=== PATIENT | female | born 1995 | race Caucasian/White ===

== ENCOUNTER → 2016-09-10 | Outpatient (REF) | payer OTHER | LOC: M SFHCLERA 20:14 | PROVIDERS: ATTEND Physician Assistant | DX: J02.9 Acute pharyngitis, unspecified (principal) ==

== ENCOUNTER → 2020-04-30 | Outpatient (REF) | payer OTHER | LOC: M WUC 12:08 | PROVIDERS: ATTEND Nurse Practitioner Family | DX: J02.9 Acute pharyngitis, unspecified (principal) ==

== ENCOUNTER → 2023-01-28 | Outpatient (CLI) | payer OTHER | LOC: M PLALAB 16:21 | PROVIDERS: ATTEND Advanced Practice Midwife | DX: Z34.01 Encounter for supervision of normal first pregnancy, first trimester (principal) ==

== ENCOUNTER → 2023-01-28 | Outpatient (REF) | payer OTHER ==
[2023-01-29 12:29] LABS: GC DNA AMPLIFICATION NEGATIVE (NEGATIVE)
== END ==
LOC: M PLALAB 16:06
PROVIDERS: ATTEND Advanced Practice Midwife
DX: Z34.01 Encounter for supervision of normal first pregnancy, first trimester (principal)

== ENCOUNTER → 2023-02-26 | Outpatient (REF) | payer OTHER | LOC: M PLALAB 15:58 | PROVIDERS: ATTEND Obstetrics & Gynecology | DX: R82.90 Unspecified abnormal findings in urine (principal) ==

== ENCOUNTER → 2023-03-17 | Outpatient (CLI) | payer OTHER | LOC: M RAD 12:56 | PROVIDERS: ATTEND Obstetrics & Gynecology | DX: Z34.92 Encounter for supervision of normal pregnancy, unspecified, second trimester (principal) ==

== ENCOUNTER → 2023-03-30 | Outpatient (REF) | payer OTHER | LOC: M SFHCWAGY 13:10 | PROVIDERS: ATTEND Obstetrics & Gynecology | DX: R82.90 Unspecified abnormal findings in urine (principal) ==

== ENCOUNTER → 2023-04-02 | Outpatient (CLI) | payer OTHER | LOC: M WHC 08:15 | PROVIDERS: ATTEND Obstetrics & Gynecology | DX: Z36.2 Encounter for other antenatal screening follow-up (principal) ==

== ENCOUNTER → 2023-06-02 | Outpatient (CLI) | payer BC ==
[2023-06-02 13:35] LABS: HEMOGLOBIN 10.9 g/dl (12.0-15.5); MEAN CORPUSCULAR HEMOGLOBIN 25.4 pg (27.0-33.0); MEAN CORPUSCULAR HGB CONC 32.1 g/dl (32.0-36.5); MEAN CORPUSCULAR VOLUME 79.3 fl (80.0-96.0); PLATELET COUNT, AUTOMATED 298 10^3/uL (150-450); RED BLOOD COUNT 4.29 10^6/uL (4.00-5.40); WHITE BLOOD COUNT 14.8 10^3/uL (4.0-10.0)
[2023-06-02 13:55] LABS: TOTAL PROTEIN,RANDOM URINE 21.6 MG/DL (0.0-14.0)
[2023-06-02 14:02] LABS: CREATININE,RANDOM URINE 179.6 MG/DL
[2023-06-02 14:15] LABS: ALT/SGPT 39 U/L (7.0-40); AST/SGOT 24 U/L (<34); BILIRUBIN,TOTAL 0.2 MG/DL (0.3-1.2); CREATININE FOR GFR 0.54 MG/DL (0.55-1.30); GLOMERULAR FILTRATION RATE > 60.0 (>60); LDH LACTATE DEHYDROGENASE 159 U/L (120-246); URIC ACID 5.2 MG/DL (3.1-7.8)
== END ==
LOC: M PLALAB 11:07
PROVIDERS: ATTEND Advanced Practice Midwife
DX: Z34.03 Encounter for supervision of normal first pregnancy, third trimester (principal)

== ENCOUNTER → 2023-06-23 | Outpatient (CLI) | payer BC | LOC: M WHC 08:39 | PROVIDERS: ATTEND Advanced Practice Midwife | DX: O24.419 Gestational diabetes mellitus in pregnancy, unspecified control (principal); Z3A.35 35 weeks gestation of pregnancy ==

== ENCOUNTER 2023-07-05 17:46 | Inpatient (IN) ==
[~2023-07-05] VITALS: Ht 152.4 cm; Wt 118.7 kg
[2023-07-05] VITALS (12 sets, daily range): BP systolic 107–146; BP diastolic 57–94; O2SAT 98
[2023-07-05] MEDS ORDERED: METF500T13 PO (18:07)
[2023-07-05] MEDS ORDERED: RA M500C PO (18:07)
[2023-07-05] MEDS ORDERED: LEVO50TA5 PO (18:07)
[2023-07-05] MEDS ORDERED: PRENTAB9 PO (18:07)
[2023-07-05] MEDS ORDERED: UNIS25TA3 PO (18:07)
[2023-07-05] MEDS ORDERED: HOME MED LIST COMPLETE! XX SCH (18:10)
[2023-07-05] MEDS ORDERED: PENICILLIN G POTASSIUM 5 MU IV 5 MU in D5W MINI-BAG PLUS 100 ML IV STA (19:43)
[2023-07-05] MEDS ORDERED: LIDOCAINE 1% MDV 20ML VIAL INFIL PRN (19:45)
[2023-07-05] MEDS ORDERED: TRANEXAMIC ACID INJection 1,000 MG in NS 100 ML IV PRN (19:45)
[2023-07-05] MEDS ORDERED: OXYTOCIN DRIP 30 UNITS in IV 1 EA IV PRN (19:45)
[2023-07-05] MEDS ORDERED: METHYLERGONOVINE MALEATE 0.2MG/ML 1ML VIAL IM PRN (19:45)
[2023-07-05] MEDS ORDERED: CARBOPROST TROMETHAMINE 250 MCG/ML AMP IM PRN (19:45)
[2023-07-05 20:44] LABS: HEMATOCRIT 34.5 % (36.0-47.0); HEMOGLOBIN 11.5 g/dl (12.0-15.5); MEAN CORPUSCULAR HEMOGLOBIN 25.2 pg (27.0-33.0); MEAN CORPUSCULAR HGB CONC 33.3 g/dl (32.0-36.5); MEAN CORPUSCULAR VOLUME 75.7 fl (80.0-96.0); PLATELET COUNT, AUTOMATED 336 10^3/uL (150-450); RED BLOOD COUNT 4.56 10^6/uL (4.00-5.40); WHITE BLOOD COUNT 16.3 10^3/uL (4.0-10.0)
[2023-07-05] MEDS: BETAMETHASONE SOLUSPAN 6MG/ML 5ML VIAL IM SCH (20:52)
[2023-07-05 21:11] LABS: URIC ACID 5.3 MG/DL (3.1-7.8)
[2023-07-05 21:13] LABS: LDH LACTATE DEHYDROGENASE 247 U/L (120-246)
[2023-07-05 21:14] LABS: ALT/SGPT 452 U/L (7.0-40); AST/SGOT 300 U/L (<34); BILIRUBIN,TOTAL 0.5 MG/DL (0.3-1.2); GLOMERULAR FILTRATION RATE > 60.0 (>60)
[2023-07-05] MEDS ORDERED: CALCIUM GLUCONATE 1,000 MG in D5W MINI-BAG PLUS 100 ML IV PRN (21:20)
[2023-07-05] MEDS ORDERED: MAG Sulf (L&D) 4 GM/100 ML 4 GM in IV 1 EA IV ONE (21:20)
[2023-07-05] MEDS: LR 1,000 ML IV SCH (21:55)
[2023-07-05] MEDS ORDERED: metFORMIN (GLUCOPHAGE) 500MG TAB PO ONE (22:00)
[2023-07-05] MEDS: MAG Sulf (OBGYN) 20GM/500ML 20,000 MG in IV 1 EA IV SCH (22:16)
[2023-07-05] MEDS ORDERED: miSOPROStol 50MCG 1/2 TABLET PO SCH (23:30)
[2023-07-05] MEDS ORDERED: PEN G POT 3,000,000 UNIT/50 ML 3,000,000 UNIT in IV 1 EA IV SCH (23:45)
[2023-07-06] VITALS (51 sets, daily range): BP systolic 99–161; BP diastolic 52–105; O2SAT 97–99
[2023-07-06] MEDS ORDERED: ACETAMINOPHEN 500 MG TAB PO PRN ×2 (02:55→20:20)
[2023-07-06 05:56] LABS: HEMOGLOBIN 11.8 g/dl (12.0-15.5); MEAN CORPUSCULAR HEMOGLOBIN 25.1 pg (27.0-33.0); MEAN CORPUSCULAR HGB CONC 32.8 g/dl (32.0-36.5); MEAN CORPUSCULAR VOLUME 76.4 fl (80.0-96.0); PLATELET COUNT, AUTOMATED 354 10^3/uL (150-450); RED BLOOD COUNT 4.71 10^6/uL (4.00-5.40); WHITE BLOOD COUNT 18.9 10^3/uL (4.0-10.0)
[2023-07-06 06:20] LABS: LDH LACTATE DEHYDROGENASE 336 U/L (120-246)
[2023-07-06 06:21] LABS: ALT/SGPT 548 U/L (7.0-40); AST/SGOT 441 U/L (<34); BILIRUBIN,TOTAL 0.7 MG/DL (0.3-1.2); CREATININE FOR GFR 0.51 MG/DL (0.55-1.30); GLOMERULAR FILTRATION RATE > 60.0 (>60)
[2023-07-06] MEDS: LEVOTHYROXINE 50MCG TABLET (0.05MG) PO SCH (06:34)
[2023-07-06] MEDS: MAG Sulf (OBGYN) 20GM/500ML 20,000 MG in IV 1 EA IV SCH ×2 (08:21→18:23)
[2023-07-06] MEDS: metFORMIN (GLUCOPHAGE) 500MG TAB PO SCH ×2 (09:08→18:00)
[2023-07-06] MEDS ORDERED: OXYTOCIN DRIP 30 UNITS in IV 1 EA IV SCH ×2 (10:00→20:20)
[2023-07-06] MEDS: LR 1,000 ML IV SCH ×3 (10:15→20:20)
[2023-07-06 13:06] LABS: HEMATOCRIT 34.1 % (36.0-47.0); HEMOGLOBIN 11.1 g/dl (12.0-15.5); MEAN CORPUSCULAR HGB CONC 32.6 g/dl (32.0-36.5); MEAN CORPUSCULAR VOLUME 76.8 fl (80.0-96.0); PLATELET COUNT, AUTOMATED 340 10^3/uL (150-450); RED BLOOD COUNT 4.44 10^6/uL (4.00-5.40)
[2023-07-06 13:21] LABS: LIPASE 35 U/L (12-53)
[2023-07-06 13:22] LABS: INR 0.98; PROTHROMBIN TIME 12.7 SECONDS (12.5-14.5)
[2023-07-06 13:24] LABS: AMYLASE 42 U/L (30-118)
[2023-07-06 13:25] LABS: PARTIAL THROMBOPLASTIN TIME 27.6 SECONDS (24.8-34.2)
[2023-07-06 14:14] LABS: ALBUMIN 2.8 G/DL (3.2-5.2); ALKALINE PHOSPHATASE 161 U/L (46-116); ALT/SGPT 706 U/L (7.0-40); AST/SGOT 635 U/L (<34); BILIRUBIN,TOTAL 0.8 MG/DL (0.3-1.2); BLOOD UREA NITROGEN 7 MG/DL (9-23); CALCIUM LEVEL 7.6 MG/DL (8.5-10.1); CARBON DIOXIDE LEVEL 20 MMOL/L (20-31); CHLORIDE LEVEL 100 MMOL/L (98-107); CREATININE FOR GFR 0.49 MG/DL (0.55-1.30); GLOMERULAR FILTRATION RATE > 60.0 (>60); GLUCOSE, FASTING 107 MG/DL (60-100); SODIUM LEVEL 131 MMOL/L (136-145); TOTAL PROTEIN 6.5 G/DL (5.7-8.2)
[2023-07-06] MEDS ORDERED: PENICILLIN G POTASSIUM 5 MU IV 5 MU in D5W MINI-BAG PLUS 100 ML IV STA (14:44)
[2023-07-06] MEDS ORDERED: ONDANSETRON 4MG 2ML VIAL IV PRN ×3 (15:30→20:20)
[2023-07-06] MEDS ORDERED: PROMETHAZINE 25MG/ML 1ML VIAL IV ONE (16:10)
[2023-07-06] MEDS ORDERED: NALBUPHINE HCL 1MG/0.1ML (100MG/10ML) MDV IV ONE (16:10)
[2023-07-06] MEDS ORDERED: diphenhydrAMINE 50MG/ML VIAL IV PRN (16:40)
[2023-07-06] MEDS ORDERED: LR 500 ML IV PRN (16:40)
[2023-07-06] MEDS ORDERED: FENTANYL/ROPIVACAINE/NACL BAG 100 ML EPIDURAL SCH (16:40)
[2023-07-06] MEDS ORDERED: EPIDURAL/PCA KEYS XX PRN (16:40)
[2023-07-06] MEDS ORDERED: ePHEDrine SULFATE 25 MG/5 ML(5MG/ML) SYRINGE IVP PRN (16:40)
[2023-07-06] MEDS ORDERED: NALOXONE INJ 0.4MG/1ML VIAL IV PRN (16:40)
[2023-07-06] MEDS ORDERED: PEN G POT 3,000,000 UNIT/50 ML 3,000,000 UNIT in IV 1 EA IV SCH (19:00)
[2023-07-06 19:02] LABS: URIC ACID 7.1 MG/DL (3.1-7.8)
[2023-07-06 19:04] LABS: LDH LACTATE DEHYDROGENASE 435 U/L (120-246)
[2023-07-06] MEDS: BETAMETHASONE SOLUSPAN 6MG/ML 5ML VIAL IM SCH (20:00)
[2023-07-06] MEDS ORDERED: RHOGAM 300MCG (1500IU) INJ IM SCH (20:20)
[2023-07-06] MEDS ORDERED: DOCUSATE SODIUM 100MG CAPSULE PO PRN (20:20)
[2023-07-06] MEDS ORDERED: ANUSOL HC CREAM 30GM TOP PRN (20:20)
[2023-07-06] MEDS ORDERED: DIBUCAINE 1% OINTMENT 30GM TOP PRN (20:20)
[2023-07-06] MEDS ORDERED: IBUPROFEN 600MG TAB PO PRN (20:20)
[2023-07-06] MEDS ORDERED: ACETAMINOPHEN TAB 650MG DOSE (2X325MG) PO PRN (20:20)
[2023-07-06] MEDS ORDERED: IBUPROFEN 800 MG TAB PO PRN (20:20)
[2023-07-07] VITALS (12 sets, daily range): BP systolic 113–138; BP diastolic 68–84; O2SAT 97–99
[2023-07-07] MEDS: MAG Sulf (OBGYN) 20GM/500ML 20,000 MG in IV 1 EA IV SCH (03:32)
[2023-07-07] MEDS: LEVOTHYROXINE 50MCG TABLET (0.05MG) PO SCH (06:30)
[2023-07-07] MEDS: PRENATAL VITAMINS CHEWABLE TABLET PO SCH (07:51)
[2023-07-07] MEDS: LR 1,000 ML IV SCH (07:51)
[2023-07-07] MEDS: metFORMIN (GLUCOPHAGE) 500MG TAB PO SCH ×2 (07:51→18:45)
[2023-07-07 12:36] LABS: HEMATOCRIT 32.6 % (36.0-47.0); HEMOGLOBIN 10.7 g/dl (12.0-15.5); MEAN CORPUSCULAR HEMOGLOBIN 24.9 pg (27.0-33.0); MEAN CORPUSCULAR HGB CONC 32.8 g/dl (32.0-36.5); MEAN CORPUSCULAR VOLUME 75.8 fl (80.0-96.0); PLATELET COUNT, AUTOMATED 362 10^3/uL (150-450); WHITE BLOOD COUNT 18.3 10^3/uL (4.0-10.0)
[2023-07-07 13:06] LABS: URIC ACID 6.5 MG/DL (3.1-7.8)
[2023-07-07 13:08] LABS: LDH LACTATE DEHYDROGENASE 448 U/L (120-246)
[2023-07-07 13:09] LABS: ALT/SGPT 816 U/L (7.0-40); AST/SGOT 650 U/L (<34); BILIRUBIN,TOTAL 0.6 MG/DL (0.3-1.2); CREATININE FOR GFR 0.59 MG/DL (0.55-1.30); GLOMERULAR FILTRATION RATE > 60.0 (>60)
[2023-07-08 02:00] VITALS: BP 128/68; O2SAT 97
[2023-07-08] MEDS: LEVOTHYROXINE 50MCG TABLET (0.05MG) PO SCH (05:06)
[2023-07-08 06:00] VITALS: BP 144/76; O2SAT 97
[2023-07-08 06:57] LABS: HEMATOCRIT 34.5 % (36.0-47.0); MEAN CORPUSCULAR HEMOGLOBIN 24.8 pg (27.0-33.0); MEAN CORPUSCULAR HGB CONC 31.9 g/dl (32.0-36.5); MEAN CORPUSCULAR VOLUME 77.9 fl (80.0-96.0); PLATELET COUNT, AUTOMATED 349 10^3/uL (150-450); RED BLOOD COUNT 4.43 10^6/uL (4.00-5.40); WHITE BLOOD COUNT 14.6 10^3/uL (4.0-10.0)
[2023-07-08 07:23] LABS: URIC ACID 6.1 MG/DL (3.1-7.8)
[2023-07-08 07:25] LABS: LDH LACTATE DEHYDROGENASE 264 U/L (120-246)
[2023-07-08 07:26] LABS: ALT/SGPT 612 U/L (7.0-40); AST/SGOT 313 U/L (<34); BILIRUBIN,TOTAL 0.3 MG/DL (0.3-1.2); CREATININE FOR GFR 0.53 MG/DL (0.55-1.30); GLOMERULAR FILTRATION RATE > 60.0 (>60)
[2023-07-08] MEDS ORDERED: INFLUENZA QUADRIVALENT PF VACCINE 0.5ML SYRINGE IM.IMMUN ONE (09:00)
[2023-07-08] MEDS ORDERED: MEASLES,MUMPS,RUBELLA VACCINE INJ (MMR-II) SC.IMMUN ONE (09:00)
[2023-07-08] MEDS ORDERED: IBUP80TA PO (09:30)
[2023-07-08] MEDS ORDERED: ACET-683 PO (09:30)
[2023-07-08] MEDS: metFORMIN (GLUCOPHAGE) 500MG TAB PO SCH (09:50)
[2023-07-08] MEDS: PRENATAL VITAMINS CHEWABLE TABLET PO SCH (09:50)
[2023-07-08 10:30] VITALS: BP 139/78; O2SAT 98
[2023-07-08 14:00] VITALS: BP 144/83; O2SAT 99
== END 2023-07-08 17:42 | disposition home or self-care (01) | DRG 807 ==
LOC: M LDO 17:46 → M LDI 21:13 → MERGE 21:13 → M OBS 07-07 09:30
PROVIDERS: ADMIT Advanced Practice Midwife; ATTEND Obstetrics & Gynecology
PROC: 3E0P7GC Introduction of Other Therapeutic Substance into Female Reproductive, Via Natural or Artificial Opening (ICD-10-PCS; 2023-07-05)
PROC: 10E0XZZ Delivery of Products of Conception, External Approach (ICD-10-PCS; principal; 2023-07-06)
DX: O14.24 HELLP syndrome, complicating childbirth (principal); Z37.0 Single live birth; Z3A.35 35 weeks gestation of pregnancy; O99.214 Obesity complicating childbirth; E66.01 Morbid (severe) obesity due to excess calories; O99.284 Endocrine, nutritional and metabolic diseases complicating childbirth; E03.9 Hypothyroidism, unspecified; O24.425 Gestational diabetes mellitus in childbirth, controlled by oral hypoglycemic drugs; Z79.84 Long term (current) use of oral hypoglycemic drugs; Z79.899 Other long term (current) drug therapy

== ENCOUNTER → 2023-07-05 | Outpatient (REF) | payer BC ==
[~2023-07-05] MED LIST: LEVO50TA5 PO; METF500T13 PO; PRENTAB9 PO; RA M500C PO; UNIS25TA3 PO
== END ==
LOC: M PLALAB 09:24
PROVIDERS: ATTEND Specialist
DX: O24.419 Gestational diabetes mellitus in pregnancy, unspecified control (principal)

== ENCOUNTER → 2023-07-05 | Outpatient (CLI) | payer BC ==
[2023-07-05 14:01] LABS: HEMATOCRIT 36.9 % (36.0-47.0); MEAN CORPUSCULAR HEMOGLOBIN 25.3 pg (27.0-33.0); MEAN CORPUSCULAR HGB CONC 32.5 g/dl (32.0-36.5); MEAN CORPUSCULAR VOLUME 77.8 fl (80.0-96.0); PLATELET COUNT, AUTOMATED 322 10^3/uL (150-450); RED BLOOD COUNT 4.74 10^6/uL (4.00-5.40); WHITE BLOOD COUNT 14.2 10^3/uL (4.0-10.0)
[2023-07-05 15:06] LABS: URIC ACID 5.2 MG/DL (3.1-7.8)
[2023-07-05 15:08] LABS: LDH LACTATE DEHYDROGENASE 210 U/L (120-246); TOTAL PROTEIN,RANDOM URINE 26.3 MG/DL (0.0-14.0)
[2023-07-05 15:09] LABS: ALT/SGPT 425 U/L (7.0-40); AST/SGOT 260 U/L (<34); BILIRUBIN,TOTAL 0.5 MG/DL (0.3-1.2); CREATININE FOR GFR 0.53 MG/DL (0.55-1.30); CREATININE,RANDOM URINE 86.9 MG/DL; GLOMERULAR FILTRATION RATE > 60.0 (>60)
== END ==
LOC: M PLALAB 09:53
PROVIDERS: ATTEND Specialist
DX: O24.419 Gestational diabetes mellitus in pregnancy, unspecified control (principal)

== ENCOUNTER → 2024-11-15 | Outpatient (CLI) | payer BC ==
[~2024-11-15] MED LIST changes: +ACET-683 PO; +IBUP80TA PO
== END ==
LOC: M PLALAB 15:26
PROVIDERS: ATTEND Advanced Practice Midwife
DX: Z34.81 Encounter for supervision of other normal pregnancy, first trimester (principal)

== ENCOUNTER → 2025-02-20 | Outpatient (REF) | payer OTHER | LOC: M PLALAB 16:27 | PROVIDERS: ATTEND Advanced Practice Midwife | DX: Z34.82 Encounter for supervision of other normal pregnancy, second trimester (principal) ==

== ENCOUNTER → 2025-02-20 | Outpatient (CLI) | payer BC, OTHER | LOC: M RAD 16:15 | PROVIDERS: ATTEND Specialist | DX: Z34.80 Encounter for supervision of other normal pregnancy, unspecified trimester (principal) ==

== ENCOUNTER → 2025-03-21 | Outpatient (CLI) | payer OTHER ==
[2025-03-21 18:13] LABS: PLATELET COUNT, AUTOMATED 324 10^3/uL (150-450)
[2025-03-21 18:44] LABS: LDH LACTATE DEHYDROGENASE 166 U/L (120-246)
[2025-03-21 18:45] LABS: ALT/SGPT 30 U/L (7.0-40); AST/SGOT 23 U/L (<34); CREATININE FOR GFR 0.56 MG/DL (0.55-1.30); GLOMERULAR FILTRATION RATE > 90.0 (>60)
== END ==
LOC: M PLALAB 15:41
PROVIDERS: ATTEND Advanced Practice Midwife
DX: O10.013 Pre-existing essential hypertension complicating pregnancy, third trimester (principal); Z3A.00 Weeks of gestation of pregnancy not specified

== ENCOUNTER → 2025-04-04 | Outpatient (CLI) | payer OTHER | LOC: M WHC 14:15 | PROVIDERS: ATTEND Advanced Practice Midwife | DX: O10.013 Pre-existing essential hypertension complicating pregnancy, third trimester (principal) ==

== ENCOUNTER 2025-04-15 19:55 | Outpatient (CLI) | payer OTHER ==
[~2025-04-15] VITALS: Ht 154.9 cm; Wt 113.2 kg
[2025-04-15 20:10] VITALS: BP 120/58
[2025-04-15 20:26] VITALS: BP 118/61
[2025-04-15 20:42] VITALS: BP 110/61
[2025-04-15 20:56] VITALS: BP 109/59
[2025-04-15] MEDS: METOCLOPRAMIDE 10 MG TAB PO ONE (21:17)
[2025-04-15 21:33] LABS: PLATELET COUNT, AUTOMATED 272 10^3/uL (150-450)
[2025-04-15 22:01] LABS: LDH LACTATE DEHYDROGENASE 196 U/L (120-246)
[2025-04-15 22:02] LABS: ALT/SGPT 47 U/L (7.0-40); AST/SGOT 29 U/L (<34); CREATININE FOR GFR 0.54 MG/DL (0.55-1.30); GLOMERULAR FILTRATION RATE > 90.0 (>60)
[2025-04-15 22:30] LABS: TOTAL PROTEIN,RANDOM URINE 30.1 MG/DL (0.0-14.0)
[2025-04-15 23:05] VITALS: BP 101/68
== END 2025-04-16 01:40 | disposition home or self-care (01) ==
LOC: M LDO 19:55
PROVIDERS: ATTEND Obstetrics & Gynecology
DX: O10.013 Pre-existing essential hypertension complicating pregnancy, third trimester (principal); O26.893 Other specified pregnancy related conditions, third trimester; R51.9 Headache, unspecified; Z3A.32 32 weeks gestation of pregnancy; Z87.59 Personal history of other complications of pregnancy, childbirth and the puerperium
CPT/HCPCS: 36415; 59025; 82247; 82570; 83615; 84156; 84450; 84460; 84550; 85027; G0463

== ENCOUNTER → 2025-05-01 | Outpatient (REF) | payer OTHER ==
[2025-05-01 15:15] LABS: PLATELET COUNT, AUTOMATED 285 10^3/uL (150-450)
[2025-05-01 15:24] LABS: LDH LACTATE DEHYDROGENASE 122 U/L (120-246)
[2025-05-01 15:25] LABS: ALT/SGPT 37 U/L (7.0-40); AST/SGOT 24 U/L (<34); CREATININE FOR GFR 0.56 MG/DL (0.55-1.30); GLOMERULAR FILTRATION RATE > 90.0 (>60)
[2025-05-01 16:34] LABS: TOTAL PROTEIN,RANDOM URINE 23.7 MG/DL (0.0-14.0)
[2025-05-01 17:21] LABS: Trichomonas vaginalis (AMP) NOT DETECTED (NEGATIVE)
[2025-05-01 17:44] LABS: GC DNA AMPLIFICATION NEGATIVE (NEGATIVE)
== END ==
LOC: M SFHCWAGY 13:01
PROVIDERS: ATTEND Obstetrics & Gynecology
DX: O10.013 Pre-existing essential hypertension complicating pregnancy, third trimester (principal)

== ENCOUNTER 2025-05-09 18:10 | Outpatient (CLI) | payer OTHER ==
[~2025-05-09] VITALS: Ht 154.9 cm; Wt 114.6 kg
[2025-05-09] MEDS ORDERED: LABE200T5 PO (18:34)
[2025-05-09] MEDS ORDERED: ASPI81CH33 PO (18:34)
[2025-05-09] MEDS ORDERED: OMEP40CA4 PO (18:35)
[2025-05-09 18:37] VITALS: BP 129/79
[2025-05-09 19:12] VITALS: BP 132/69
[2025-05-09 19:27] VITALS: BP 124/66
[2025-05-09] MEDS: FIORICET TAB PO ONE (19:41)
== END 2025-05-09 20:44 | disposition home or self-care (01) ==
LOC: M LDO 18:10
PROVIDERS: ATTEND Advanced Practice Midwife
DX: O10.013 Pre-existing essential hypertension complicating pregnancy, third trimester (principal); O99.283 Endocrine, nutritional and metabolic diseases complicating pregnancy, third trimester; O99.343 Other mental disorders complicating pregnancy, third trimester; O26.893 Other specified pregnancy related conditions, third trimester; R51.0 Headache with orthostatic component, not elsewhere classified; E03.9 Hypothyroidism, unspecified; F90.0 Attention-deficit hyperactivity disorder, predominantly inattentive type; Z3A.36 36 weeks gestation of pregnancy; Z87.59 Personal history of other complications of pregnancy, childbirth and the puerperium
CPT/HCPCS: 59025; G0463

== ENCOUNTER → 2025-05-10 | Outpatient (CLI) | payer OTHER ==
[~2025-05-10] MED LIST changes: +ASPI81CH33 PO; +LABE200T5 PO; +OMEP40CA4 PO
== END ==
LOC: M WHC 15:26
PROVIDERS: ATTEND Advanced Practice Midwife
DX: O10.013 Pre-existing essential hypertension complicating pregnancy, third trimester (principal); Z3A.36 36 weeks gestation of pregnancy

== ENCOUNTER 2025-05-11 17:37 | Inpatient (IN) | payer OTHER ==
[~2025-05-11] VITALS: Ht 154.9 cm; Wt 114.8 kg
[2025-05-11 18:00] VITALS: BP 123/73
[2025-05-11] MEDS ORDERED: HOME MED LIST COMPLETE! XX SCH ×2 (18:00→21:20)
[2025-05-11 18:23] VITALS: BP 137/88
[2025-05-11] MEDS: ACETAMINOPHEN 500 MG TAB PO ONE (18:26)
[2025-05-11 18:48] VITALS: BP 137/84
[2025-05-11 19:21] LABS: PLATELET COUNT, AUTOMATED 266 10^3/uL (150-450)
[2025-05-11 19:47] LABS: TOTAL PROTEIN,RANDOM URINE 50.2 MG/DL (0.0-14.0)
[2025-05-11 19:50] LABS: LDH LACTATE DEHYDROGENASE 168 U/L (120-246)
[2025-05-11 19:51] LABS: ALT/SGPT 62 U/L (7.0-40); AST/SGOT 38 U/L (<34); CREATININE FOR GFR 0.49 MG/DL (0.55-1.30); GLOMERULAR FILTRATION RATE > 90.0 (>60)
[2025-05-11] MEDS ORDERED: LIDOCAINE 1% MDV 20 ML VIAL INFIL PRN (20:15)
[2025-05-11] MEDS ORDERED: METHYLERGONOVINE MALEATE 0.2 MG/ML 1 ML VIAL IM PRN (20:15)
[2025-05-11] MEDS ORDERED: TRANEXAMIC ACID INJection 1,000 MG in NS 100 ML IV PRN (20:15)
[2025-05-11] MEDS ORDERED: OXYTOCIN DRIP 30 UNITS in IV 1 EA IV PRN (20:15)
[2025-05-11] MEDS ORDERED: CARBOPROST TROMETHAMINE 250 MCG/ML AMP IM PRN (20:15)
[2025-05-11 20:27] VITALS: BP 131/78
[2025-05-11 21:20] LABS: HEPATITIS C VIRUS ABY INDEX < 0.02 INDEX (<0.8)
[2025-05-11] MEDS: miSOPROStol 50 MCG 1/2 TABLET PO SCH (21:28)
[2025-05-11] MEDS: LABETALOL 200 MG TAB PO SCH (21:42)
[2025-05-11 23:34] LABS: HIV 1&2 SCREEN NEGATIVE (NEGATIVE)
[2025-05-12] VITALS (21 sets, daily range): BP systolic 101–145; BP diastolic 58–84; TEMP 98.4–98.6
[2025-05-12 07:08] LABS: PLATELET COUNT, AUTOMATED 268 10^3/uL (150-450)
[2025-05-12 07:29] LABS: LDH LACTATE DEHYDROGENASE 155 U/L (120-246)
[2025-05-12 07:30] LABS: ALT/SGPT 58 U/L (7.0-40); AST/SGOT 36 U/L (<34); CREATININE FOR GFR 0.58 MG/DL (0.55-1.30); GLOMERULAR FILTRATION RATE > 90.0 (>60)
[2025-05-12] MEDS: LEVOTHYROXINE 50 MCG TABLET (0.05 MG) PO SCH (09:20)
[2025-05-12] MEDS: OXYTOCIN DRIP 30 UNITS in IV 1 EA IV SCH ×3 (10:08→23:20)
[2025-05-12] MEDS: LR 1,000 ML IV SCH ×2 (10:08→21:55)
[2025-05-12] MEDS: BUTORPHANOL 2 MG/ML 1 ML VIAL IV ONE (10:40)
[2025-05-12] MEDS ORDERED: EPIDURAL/PCA KEYS XX PRN (21:30)
[2025-05-12] MEDS ORDERED: NALOXONE INJ 0.4 MG/1 ML VIAL IV PRN (21:30)
[2025-05-12] MEDS ORDERED: diphenhydrAMINE 50 MG/ML VIAL IV PRN (21:30)
[2025-05-12] MEDS ORDERED: ONDANSETRON 4MG 2ML VIAL IV PRN ×2 (21:30→21:55)
[2025-05-12] MEDS ORDERED: FENTANYL/ROPIVACAINE/NACL BAG 100 ML EPIDURAL SCH (21:30)
[2025-05-12] MEDS ORDERED: LR 500 ML IV PRN (21:30)
[2025-05-12] MEDS ORDERED: IBUPROFEN 800 MG TAB PO PRN (21:55)
[2025-05-12] MEDS ORDERED: ACETAMINOPHEN 500 MG TAB PO PRN (21:55)
[2025-05-12] MEDS ORDERED: DIBUCAINE 1% OINTMENT 30 GM TOP PRN (21:55)
[2025-05-12] MEDS ORDERED: RHOGAM 300MCG (1500IU) INJ IM SCH (21:55)
[2025-05-12] MEDS ORDERED: DOCUSATE SODIUM 100 MG CAPSULE PO PRN (21:55)
[2025-05-12] MEDS: IBUPROFEN 600 MG TAB PO PRN (23:14)
[2025-05-13 00:05] VITALS: BP 129/69; O2SAT 97
[2025-05-13 06:00] VITALS: BP 131/72; O2SAT 97
[2025-05-13 06:24] LABS: PLATELET COUNT, AUTOMATED 257 10^3/uL (150-450)
[2025-05-13 09:15] VITALS: BP 131/77
[2025-05-13] MEDS: PRENATAL VITAMINS CHEWABLE TABLET PO SCH (09:22)
[2025-05-13] MEDS: ENOXAPARIN 60 MG/0.6 ML SYRINGE (J1650 PER 10MG) SC SCH (09:22)
[2025-05-13] MEDS: ACETAMINOPHEN 325 MG TAB PO PRN (09:23)
[2025-05-13 18:05] VITALS: BP 139/84; O2SAT 98
[2025-05-13 22:00] VITALS: BP 136/72; O2SAT 99
[2025-05-14 06:01] VITALS: BP 119/70; O2SAT 99
[2025-05-14 08:16] VITALS: BP 132/74
[2025-05-14] MEDS ORDERED: IBUP80TA PO (08:38)
[2025-05-14] MEDS: MEASLES,MUMPS,RUBELLA VACCINE INJ (MMR-II) SC.IMMUN ONE (09:07)
[2025-05-14] MEDS: FLUZONE VACCINE TRI PF(25-26) 0.5ML SYRINGE IM.IMMUN ONE (13:30)
== END 2025-05-14 15:00 | disposition home or self-care (01) | DRG 560 ==
LOC: M LDO 17:37 → M LDI 19:58 → M OBS 05-13
PROVIDERS: ADMIT Advanced Practice Midwife; ATTEND Student in an Organized Health Care Education/Training Program
PROC: 3E0P7GC Introduction of Other Therapeutic Substance into Female Reproductive, Via Natural or Artificial Opening (ICD-10-PCS; 2025-05-11)
PROC: 10E0XZZ Delivery of Products of Conception, External Approach (ICD-10-PCS; principal; 2025-05-12)
PROC: 10907ZC Drainage of Amniotic Fluid, Therapeutic from Products of Conception, Via Natural or Artificial Opening (ICD-10-PCS; 2025-05-12)
DX: O14.14 Severe pre-eclampsia complicating childbirth (principal); O69.1XX0 Labor and delivery complicated by cord around neck, with compression, not applicable or unspecified; Z3A.36 36 weeks gestation of pregnancy; Z37.0 Single live birth